=== PATIENT | male | born 1995 | race Caucasian/White ===

== ENCOUNTER 2017-01-18 22:42 | Emergency (ER) | payer MEDICAID ==
[2017-01-19 00:20] VITALS: BP 110/75
== END 2017-01-19 00:20 | disposition home or self-care (01) ==
LOC: ED 22:42
DX: H66.92 Otitis media, unspecified, left ear (principal)
CPT/HCPCS: J2001

== ENCOUNTER 2017-08-26 00:36 | Inpatient (IN) | payer MEDICAID ==
[~2017-08-26] VITALS: Ht 162.6 cm; Wt 103.9 kg
[2017-08-26 00:36] VITALS: Ht 162.6 cm; Wt 103.9 kg
[2017-08-26 02:43] LABS: CALCIUM 8.9 mg/dL (8.5-10.1); CARBON DIOXIDE 23.8 mmol/L (21-32); CHLORIDE SERUM 104 mmol/L (98-107); CREATININE SERUM 0.9 mg/dL (0.7-1.3); GFR1 > 60 mL/min; GLUCOSE SERUM 110 mg/dL (74-106); POTASSIUM SERUM 3.5 mmol/L (3.5-5.1); SODIUM SERUM 141 mmol/L (136-145)
[2017-08-26 02:52] LABS: PLATELET COUNT 226 x10^3mcL (130-400); RED CELL DISTRIBUTION WIDTH 12.9 % (11.5-14.5)
[2017-08-26 02:53] LABS: BASOPHIL % 0 % (0-2)
[2017-08-26 03:03] LABS: ALBUMIN 3.7 g/dL (3.4-5.0); ALKALINE PHOSPHATASE 73 U/L (46-116); ALT/SGPT 37 U/L (16-63); AST/SGOT 18 U/L (15-37); BILIRUBIN TOTAL 0.38 mg/dL (0.20-1.00)
[2017-08-26 03:05] LABS: TOTAL PROTEIN, SERUM 8.3 g/dL (6.4-8.2)
[2017-08-26] MEDS ORDERED: VENTOLIN H0.09 MG/A1 INH (03:11)
[2017-08-26] MEDS ORDERED: LEVOFLOXACIN750 M1 PO (03:11)
[2017-08-26 03:14] LABS: MAGNESIUM 2.1 mg/dL (1.8-2.4); PHOSPHOROUS 3.8 mg/dL (2.5-4.9)
[2017-08-26 03:16] LABS: T3 TOTAL 1.16 ng/mL
[2017-08-26 03:19] LABS: FREE T4 1.44 ng/dL (0.76-1.46); FREE THYROXINE INDEX 4.2 ug/dL (1.4-4.5); T4(THYROXINE) 11.1 ug/dL (4.7-13.3)
[2017-08-26 03:31] LABS: CHOLESTEROL/HDL RATIO 2.6
[2017-08-26 04:17] LABS: microscopic required? NO
[2017-08-26 04:28] VITALS: BP 130/89
[2017-08-26 04:52] LABS: UA SPECIFIC GRAVITY >=1.030 (1.005-1.035); urine erythrocyte NEGATIVE (NEGATIVE)
[2017-08-26 05:12] LABS: AMPHETAMINE QUAL UR NONE DETECTED (NEG <=1000)
[2017-08-26 09:26] VITALS: BP 127/81
[2017-08-26 12:47] VITALS: BP 125/64
[2017-08-26 18:13] VITALS: BP 132/76
[2017-08-26 21:48] VITALS: BP 140/75
[2017-08-27 05:57] VITALS: BP 130/73
[2017-08-27 07:09] LABS: PLATELET COUNT 211 x10^3mcL (130-400); RED CELL DISTRIBUTION WIDTH 13.5 % (11.5-14.5)
[2017-08-27 07:11] LABS: BASOPHIL % 0 % (0-2)
[2017-08-27 07:38] LABS: CALCIUM 9.3 mg/dL (8.5-10.1); CARBON DIOXIDE 24.4 mmol/L (21-32); CHLORIDE SERUM 102 mmol/L (98-107); CREATININE SERUM 0.8 mg/dL (0.7-1.3); GFR1 > 60 mL/min; GLUCOSE SERUM 143 mg/dL (74-106); MAGNESIUM 2.2 mg/dL (1.8-2.4); PHOSPHOROUS 4.7 mg/dL (2.5-4.9); POTASSIUM SERUM 3.5 mmol/L (3.5-5.1); SODIUM SERUM 139 mmol/L (136-145)
[2017-08-27 09:59] VITALS: BP 137/76
[2017-08-27 17:05] VITALS: BP 138/81
[2017-08-27 21:04] VITALS: BP 143/88
[2017-08-28 06:03] VITALS: BP 124/72
[2017-08-28 08:55] VITALS: BP 135/80
[2017-08-28] MEDS ORDERED: CLEOCIN HCL300 MG PO (12:35)
[2017-08-28] MEDS ORDERED: LAC PO (12:37)
[2017-08-28] MEDS ORDERED: LEVAQUIN750 MG PO (12:46)
[2017-08-28 13:00] VITALS: BP 135/80
== END 2017-08-28 14:20 | disposition home or self-care (01) | DRG 137 ==
LOC: ED 00:36 → DU 01:55 → MU 01:55 → DU 03:31 → MU 03:48
PROVIDERS: Emergency Medicine Emergency Medical Services; Family Medicine
DX: J69.0 Pneumonitis due to inhalation of food and vomit (principal); J96.01 Acute respiratory failure with hypoxia; F12.90 Cannabis use, unspecified, uncomplicated; E66.01 Morbid (severe) obesity due to excess calories; Z56.0 Unemployment, unspecified; Z83.3 Family history of diabetes mellitus; Z68.39 Body mass index [BMI] 39.0-39.9, adult
CPT/HCPCS: 83880; 84439; J0696; J1956; J2920; J2930; J3490; J7030; J7620; Q9967